=== PATIENT | female | born 1960 | race Caucasian/White ===

== ENCOUNTER 2016-06-05 07:41 | Day surgery (SDC) | payer BC ==
[~2016-06-05 07:41] MED LIST: CLINDAMYCIN-D5W 900 MG/50 ML*** 50 ML IV SCH; Lactated Ringers 1,000 ML IV ONE; Lactated Ringers 1,000 ML IV SCH; Levofloxacin 500MG/100ML D5W 100 ML IV ONE; Sensorcaine 0.25% 10 ML ONE
[2016-06-05] MEDS ORDERED: Quelicin Fliptop 200 MG/10 ML IV ONE (08:00)
[2016-06-05] MEDS ORDERED: DIPRIVAN 200 MG/20 ML IV ONE (08:00)
[2016-06-05] MEDS ORDERED: Zemuron 100 MG/10 ML IV ONE (08:00)
[2016-06-05] MEDS ORDERED: TORAdol 30 mg Injection IV ONE (08:00)
[2016-06-05] MEDS ORDERED: Decadron 4 MG INJ IV ONE (08:00)
[2016-06-05] MEDS ORDERED: SUBLIMAZE 100 MCG/2 ML IV ONE (08:00)
[2016-06-05] MEDS ORDERED: BLOXIVERZ IV ONE (08:00)
[2016-06-05] MEDS ORDERED: Zofran 4 MG/2 ML VIAL IV ONE (08:00)
[2016-06-05] MEDS ORDERED: ROBINUL IV ONE (08:00)
[2016-06-05] MEDS ORDERED: Zofran 4 MG/2 ML VIAL ONE (10:24)
[2016-06-05] MEDS ORDERED: Phenergan 25 MG INJ ONE (10:31)
[2016-06-05] MEDS ORDERED: Lactated Ringers 1,000 ML IV ONE (10:34)
--- NOTE | 2016-06-05 12:47 | OP ---
SURGERY DATE: 06/05/16 SURGERY TIME: 850 PREOPERATIVE DIAGNOSIS: 1. SYMPTOMATIC CHOLELITHIASIS. POSTOPERATIVE DIAGNOSIS: 1. SYMPTOMATIC CHOLELITHIASIS. PROCEDURE: 1. Laparoscopic cholecystectomy. SURGEON: Frandy Burnette M.D. ANESTHESIA: General endotracheal tube. COMPLICATIONS: None. CONDITION: Stable. INDICATION: 55 y/o requiring cholecystectomy. OPERATIVE PROCEDURE: Taken to surgery. General anesthetic. Routine prep and drape. Veress needle inserted. Opened to a pressure of 1. Insufflated to a pressure of 14. Four 5s. Good visualization. Cystic duct defined. Cystic artery defined. Both structures triply Ligaclipped and transected. Clips totally cross wall approximated. Gallbladder rolled out of gallbladder fossa. Gallbladder delivered through the upper abdominal port. Field was clean and dry. CO2 was exsufflated. Port sites closed with 0 Vicryl, 4-0 Vicryl, and Steri-strips. Patient tolerated the procedure satisfactory.
[2016-06-05 14:39] VITALS: O2SAT 99
[2016-06-05 14:40] VITALS: BP 123/65; PULSE 55
== END 2016-06-05 12:45 | disposition home or self-care (01) ==
LOC: SDC 07:41
PROVIDERS: ATTEND Surgery
PROC: 0FT44ZZ Resection of Gallbladder, Percutaneous Endoscopic Approach (ICD-10-PCS; principal; 2016-06-05)
DX: K80.20 Calculus of gallbladder without cholecystitis without obstruction (principal)
CPT/HCPCS: 00790; 36415; J0330; J1100; J1885; J1956; J2405; J2550; J2704; J2710; J3010